=== PATIENT | male | born 1990 | race Native Hawaiian/Other Pacific Islander ===

== ENCOUNTER 2020-10-07 20:23 | Emergency (ER) | payer BC ==
[~2020-10-07] VITALS: Ht 180.3 cm; Wt 60.3 kg
[~2020-10-07 20:23] MED LIST: NOHOMEMEDICATIONS
[2020-10-07 20:24] VITALS: BP 113/65
[2020-10-07 23:28] LABS: URINE BILIRUBIN NEGATIVE (Negative); URINE BLOOD NEGATIVE (Negative); URINE CLARITY CLEAR; URINE COLOR YELLOW; URINE GLUCOSE-RANDOM* NEGATIVE (Negative); URINE KETONES NEGATIVE (Negative); URINE LEUKOCYTES-REFLEX NEGATIVE (Negative); URINE NITRITE-REFLEX NEGATIVE (Negative); URINE PROTEIN (DIPSTICK) NEGATIVE (Negative)
[2020-10-07] MEDS ORDERED: MOBIC15 MG PO (23:52)
[2020-10-07] MEDS ORDERED: CYCLOBENZAPRINE5 MG PO (23:52)
== END 2020-10-08 00:30 | disposition home or self-care (01) ==
LOC: ER 20:23
PROVIDERS: Emergency Medicine
DX: S39.012A Strain of muscle, fascia and tendon of lower back, initial encounter (principal); X50.1XXA Overexertion from prolonged static or awkward postures, initial encounter; Y93.89 Activity, other specified; Y92.89 Other specified places as the place of occurrence of the external cause; Y99.8 Other external cause status